=== PATIENT | female | born 1970 | race Caucasian/White ===

== ENCOUNTER 2020-12-12 05:43 | Observation (INO) ==
--- NOTE | 2020-12-06 10:06 | Anesthesiology Consultation ---
Date of Service December 06, 2020 Assessment & Plan (1) Encounter for pre-operative examination: Chart Review Chart Review: Acceptable Risk for Surgery (pending preop Covid testing results ) and Patient NOT seen in Pre Admission Testing - Check test AM DOS Per nursing assessment 12/04/2020, patient resides in [facility]. Travels only to [facility] for medical appts- wears PPE in public. No known Covid positive contacts or Covid related symptoms. Pt did test Covid positive on 10/04/20 (had headache, sinus congestion and fatigue- symptoms have since resolved). Covid testing 12/05/2020 = results pending. Patient seen by cardiology 09/25/2020 = patient seen for follow-up. Seen in August 2020 after complaints of epigastric pain that was relieved by Tums. Has not had any more epigastric discomfort since being placed on PPI. Echo results were unremarkable. Patient had gallbladder surgery on 09/06/2020 and tolerated procedure well without complications. Dyslipidemiacontinue Crestor. Lower extremity edemareviewed results of echo with patient. Continue with Lasix and potassium. Patient can follow-up in 1 year. History Surgery Operation Date: 12/12/20 07:30 Proposed Procedures p Bilateral Breast Reduction - Tricia Gold MD Height/Weight Height: 5 ft 7 in Weight: 103.419 kg Allergies Allergy/AdvReac Type Severity Reaction Status Date / Time No Known Allergies Allergy Verified 12/04/20 09:47 Medications Home Medications Medication Instructions Recorded Confirmed Last Taken atorvastatin 10 mg tablet 5 mg PO QAM 11/14/20 12/04/20 Unknown escitalopram oxalate 5 mg tablet 20 mg PO QAM 11/14/20 12/04/20 Unknown furosemide 20 mg tablet 20 mg PO Q OTHER DAY 11/14/20 12/04/20 Unknown oxycodone-acetaminophen 5 mg-325 1 tab PO Q4H PRN 3 Days #18 tab 11/30/20 12/04/20 Unknown mg tablet Thrive Supplement 2 tabs PO QAM 12/04/20 12/04/20 Unknown acetaminophen [Tylenol] 325 mg PO QID PRN 12/04/20 12/04/20 Unknown potassium chloride 10 meq PO QAM 12/04/20 12/04/20 Unknown Past Medical History Medical History Anxiety History of COVID-19 Oct 04, 2020 Hyperlipemia Kidney stones still present no issues Past Family History Family History Grandmother Diabetes Aunt Colon cancer Other Breast cancer Cancer Stroke Past Surgical History Surgical History History of cholecystectomy History of colonoscopy History of foot surgery left History of tubal ligation with reversal History of wisdom tooth extraction, class I edentulism Hx of lumpectomy left breast > benign Social History Smoking Status: Never smoker Do You Dip or Chew Tobacco: No Hx Alcohol Use: Yes Alcohol type: wine and hard liquor alcohol intake frequency: a few times a month Hx Substance Use: No substance use type: does not use Testing Laboratory Results Laboratory Tests 12/05/20 12/05/20 12/05/20 09:40 09:40 09:40 WBC 5.30 Hgb 14.2 Hct 42.9 Plt Count 266 PT 9.8 INR 1.0 APTT 26.8 Sodium 139 Potassium 3.7 Chloride 103 Carbon Dioxide 32 BUN 17 Creatinine 0.83 Glucose 84 Electrocardiogram Date: 12/05/20 Findings: + NSR @ (61 bpm) Cannot rule out anterior infarct, age undetermined. (By personal visual inspection- EKG is similar in appearance to 08/09/20 and 09/28/19 EKGs- had subsequent 09/04/20 ECHO without acute issues; pt also evaluated annually by cardio (last seen 09/2020- no acute issues noted) Chest X-Ray Date: 08/09/20 Findings: + NAD Chest x-ray 1 view Echocardiogram Date: 09/04/20 EF: 52% LV Function: normal RWMA: + none Valvular Disease: + no significant valvular disease Right ventricular cavity size and systolic function is normal. Other Testing CTA of chest 08/09/2020 = negative for pulmonary embolus. No intratracheal or intrabronchial lesions. The lungs are clear of acute infiltrates. No evidence of emphysema. No bronchiectasis. No evidence of parenchymal nodules. Minimal compressive atelectasis seen in the most dependent portions of the lungs.
[2020-12-12] MEDS ORDERED: ceFAZolin 2000MG 2,000 MG/15 ML SYR IV SCH (06:00)
[2020-12-12] MEDS ORDERED: LACTATED RINGER'S 1,000 ML IV SCH (06:00)
[2020-12-12] MEDS ORDERED: HYDROmorphone INJ 1 MG/ML SYRINGE IV PRN (07:02)
[2020-12-12] MEDS ORDERED: MEPERIDINE HCL 25 MG/ML CARP/VIAL IV PRN (07:02)
[2020-12-12] MEDS ORDERED: ePHEDrine sulfate 50 MG/ML AMP IV PRN (07:02)
[2020-12-12] MEDS ORDERED: ONDANSETRON INJ 2 MG/ML 2 ML VIAL IV PRN (07:02)
[2020-12-12] MEDS ORDERED: LABETALOL HCL IV 5 MG/ML 20ML IV PRN (07:02)
[2020-12-12] MEDS ORDERED: ATROPINE SULFATE 0.1 MG/ML 10ML SYR IV PRN (07:02)
[2020-12-12] MEDS ORDERED: PHENYLEPHRINE 100MCG/ML 5ML SYR IV PRN (07:02)
--- NOTE | 2020-12-12 07:02 | History & Physical Bridge Note ---
Date of Service December 12, 2020 History & Physical Bridge Note I have examined the patient, reviewed the History & Physical and in the interval since the performance of the History & Physical I have noted the following changes of clinical significance: +covid test. Patient tested positive in September with headache and fatigue; denies any symptoms today.
[2020-12-12] MEDS ORDERED: fentaNYL citrate 100 MCG/2 ML VIAL ONE ×2 (07:06→08:22)
[2020-12-12] MEDS ORDERED: MIDAZOLAM HCL 1 MG/ML 2ML VIAL ONE (07:06)
[2020-12-12] MEDS ORDERED: LIDOCAINE/EPINEPHRINE 1% 20 ML VIAL ONE (07:07)
[2020-12-12] MEDS ORDERED: SCOPOLAMINE 1 MG TDSY TD ONE (07:07)
[2020-12-12] MEDS ORDERED: BUPIVACAINE 0.25% 30 ML VIAL ONE (07:07)
[2020-12-12] MEDS ORDERED: ROCURONIUM BROMIDE 10 MG/ML 5 ML VIAL IV ONE (08:26)
[2020-12-12] MEDS ORDERED: LARYING-O-JET KIT (LTA) ONE (08:26)
[2020-12-12] MEDS ORDERED: ONDANSETRON INJ 2 MG/ML 2 ML VIAL ONE (08:26)
[2020-12-12] MEDS ORDERED: PROPOFOL IV EMULSION 10 MG/ML 20 ML VIAL IV ONE (08:26)
[2020-12-12] MEDS ORDERED: LIDOCAINE HCL 2% 2 ML VIAL/AMP(20MG/ML) INFIL ONE (08:26)
[2020-12-12] MEDS ORDERED: NEOSTIGMINE METHYLSULFATE 5 MG/5 ML SYR ONE (08:26)
[2020-12-12] MEDS ORDERED: GLYCOPYRROLATE 0.2 MG/ML VIAL ONE (08:26)
--- NOTE | 2020-12-12 11:30 | Post Operative Brief Note ---
PG Immediate Post Op with CF Date of Surgery December 12, 2020 Pre & Post Diagnosis Operation Date: 12/12/20 07:30 Pre-Op Diagnosis: Encounter for Cosmetic Surgery Post-Op Diagnosis: Encounter for Cosmetic Surgery I identified the patient and participated in the time-out.: Yes Procedure Operation Date: 12/12/20 07:30 Actual Procedures p Bilateral Breast Reduction(Bilateral) - Tricia Gold MD Surgeon Tricia Gold MD Inspector Tool Melany Roy PA-C Estimated Blood Loss 50 Findings Consistent with Post-Op Diagnosis Specimens Specimen Description: Frozen Section #1: Left Breast Tissue Mass Fresh Specimen: A.) Left Breast Tissue - out of body at 0905 592 grams Fresh Specimen: B.) Right Breast Tissue - out of body at 1045 606 grams Drains Jude-Scott Drain (15 equatorial guinean round x2)
[2020-12-12] MEDS ORDERED: ACETAMINOPHEN 1000 MG/100 ML IV IV ONE (11:34)
[2020-12-12] MEDS: fentaNYL citrate 100 MCG/2 ML VIAL IV PRN ×4 (11:52→12:10)
--- NOTE | 2020-12-12 12:29 | Anesthesiology Progress Note ---
Date of Service December 12, 2020 Anesthesia Post Procedure Vital Signs Vital Signs: Temp Pulse Pulse Resp BP BP Pulse Ox 12/12/20 12:20 36.7 C 58 L 9 L 112/66 96 12/12/20 12:10 61 12 137/75 97 12/12/20 12:00 94 H 13 139/73 100 12/12/20 11:50 67 11 L 142/75 H 100 12/12/20 11:43 36.1 C L 77 14 137/84 100 12/12/20 06:20 36.8 C 79 18 122/73 96 Pain Intensity Bilateral Breast: Pain Intensity: 2 Transfer of Care Handoff Completed per policy Notes Mental Status: alert / awake / arousable Patient Amnestic to Procedure: Yes Nausea / Vomiting: adequately controlled Pain: adequately controlled Airway Patency, RR, SpO2: stable & adequate BP & HR: stable & adequate Hydration State: stable & adequate Anesthetic Complications: no major complications apparent and Pt Satisfied with anesthetic care
[2020-12-12] MEDS ORDERED: MoRPHine SULFATE 2 MG/ML CARP IV PRN (12:55)
[2020-12-12] MEDS ORDERED: MoRPHine SULFATE 4 MG/ML 1 ML CARP\\VIAL IV PRN (12:55)
[2020-12-12] MEDS ORDERED: oxyCODONE/ACETAMINOPHEN 5mg/325mg TAB PO PRN (12:55)
[2020-12-12] MEDS ORDERED: ACETAMINOPHEN 325 MG TAB PO PRN (12:55)
[2020-12-12] MEDS: CHECK SCOPOLAMINE PATCH PLACEMENT SCH ×3 (12:59→23:58)
--- NOTE | 2020-12-12 13:16 | Operative Report ---
PG Post Operative Report Pre & Post Diagnosis Operation Date: 12/12/20 07:30 Pre-Op Diagnosis: Encounter for Cosmetic Surgery Post-Op Diagnosis: Encounter for Cosmetic Surgery I identified the patient and participated in the time-out.: Yes Procedure Operation Date: 12/12/20 07:30 Actual Procedures p Bilateral Breast Reduction(Bilateral) - Tricia Gold MD Surgeon Tricia Gold MD Personal Injury Law Specialist Melany Roy PA-C Estimated Blood Loss 50 Findings Consistent with Post-Op Diagnosis Specimens left breast 592 g, right breast 606 g, left breast masss for frozen section Drains JPx2 Anesthesia Type General Complications none Disposition Disposition: Recovery Room Indications 50-year-old female with symptomatic macromastia, desiring reduction mammoplasty. Due to excessive tissue requirement by insurance, patient elected to proceed on a cosmetic/self-pay basis. Description of Procedure The risks, benefits, and alternatives of the procedure were explained to the patient who agreed and signed consent. She was identified and marked in the preoperative holding area. She was brought to the operating room where she was positioned supine and placed under general anesthesia without incident. Surgical site was prepped and draped sterilely. A time-out procedure was performed. I began with the left side. Markings were reassessed and a 8 cm pedicle was marked. 1% lidocaine with epinephrine was used to anesthetize the planned incisions. A 42 mm cookie cutter was used to circumscribe the nipple-areolar complex. The previously marked 8 cm pedicle was incised using a 15 blade scalpel and de-epithelized. I began with the medial dissection of the pedicle using electrocautery. Cautery was used to incise through dermis and breast parenchyma down to the chest wall, taking care not to undermine the pedicle during dissection. A similar procedure was undertaken on the lateral aspect of the pedicle again taking care not to undermine. Lastly, the pedicle was dissected out superiorly using electrocautery and this was carried down to the chest wall as well. I then began with excision of the medial breast tissue followed by lateral aspect of the breast tissue and surrounding keyhole incision. A 15 blade scalpel was used to make the inframammary fold incision and electrocautery was used to deepen the incision through dermis and breast parenchyma. Dissection was then carried superiorly to the level of the superior incision. Superior incision was then incised using a 15 blade scalpel and again dissected using electrocautery. This was undertaken laterally and then around the keyhole portion of the incision. Care was taken to leave some fat on the lateral pectoralis fascia in order to protect the T4 intercostal nerve. Hemostasis was achieved with electrocautery. The specimen was passed off in its entirety for weighing. Additional resection was undertaken from the superior flap in order to facilitate closure of the breast and to provide the best shape. The left medial breast did have a scar from prior excisional biopsy, this was about 4 cm superior to my incision. Intervening skin was monitored throughout the procedure, did appear to be viable without evidence of venous congestion or tissue ischemia. Additionally, a small left breast nodularity was identified, sent for frozen section, and 2 clips were applied at the site of excision in case further evaluation would be deemed necessary. 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 The total resection weight of the left breast was 592 grams. The wound was irrigated with saline and hemostasis was achieved with electrocautery. 0.25% Marcaine plain was used to anesthetize the incisions as well as the pectoralis fascia. A 15 Angolan Anton drain was brought out through a separate stab incision. The nipple-areolar complex was brought into the keyhole using 2-0 Vicryl deep dermal suture. The wound was closed first in a lateral to mid breast direction and then medial to mid breast direction using 2-0 Vicryl deep dermal sutures. Vertical limb was also appr oximated using 2-0 Vicryl deep dermals and the nipple-areolar complex was inset using 2-0 Vicryl deep dermal sutures. Next, the superficial dermal layer was closed using 2-0 PDO running Quill suture along the inframammary fold and 3-0 PDS interrupted dermal sutures along the vertical limb and nipple- areolar complex. Lastly 3-0 Monocryl running subcuticular suture was placed. A similar procedure was undertaken on the right side with maximal excision weight of 606 grams. Breasts were symmetric and nipple-areolar complexes were viable bilaterally following wound closure. Dermabond Prineo was applied along the inframammary fold and vertical limb and Dermabond was placed around the nipple-areolar complex. Dry dressings and a surgical bra were placed. The patient was awakened and transferred to recovery room in satisfactory condition. Melany Roy PA-C was present and scrubbed throughout the procedure and was instrumental in providing retraction during dissection of the pedicle and assisting in wound closure. I attest to the content of the Intraoperative Record and any orders documented therein. Any exceptions are noted below.
[2020-12-12] MEDS: D5W AND 1/2NSS + 20MEQ KCL 20 MEQ/1,000 ML BAG IV SCH (13:33)
[2020-12-12] MEDS: ceFAZolin 2000MG 2,000 MG/15 ML SYR IV SCH ×2 (14:45→22:45)
[2020-12-12] MEDS: oxyCODONE/ACETAMINOPHEN 5mg/325mg TAB PO PRN ×2 (14:49→22:07)
--- NOTE | 2020-12-12 15:02 | Surgery Progress Note ---
Date of Service December 12, 2020 Assessment & Plan (1) Macromastia: (2) Encounter for cosmetic surgery: Admission and Anticipated Discharge Date Admission Date: December 12, 2020 Patient is doing well. We reviewed her instructions for tonight. Will see in mor carla to d/c drains and send home. All questions answered. Subjective Patient is resting comfortably, vitals stable. Her pain is well controlled. Physical Exam Physical Exam: bilateral breast flaps and nipples are viable, drains with 5cc of serous and bloody output. no concern for hematoma Results & Data ([facility]) Vital Signs (Past 12 Hours) Vital Signs Temp Pulse Pulse Resp BP BP Pulse Ox 12/12/20 14:35 87 16 111/73 97 12/12/20 13:32 36.8 C 62 16 114/74 93 12/12/20 13:05 57 L 16 109/70 92 12/12/20 12:35 36.8 C 55 L 16 119/69 96 12/12/20 12:20 36.7 C 58 L 9 L 112/66 96 12/12/20 12:10 61 12 137/75 97 12/12/20 12:00 94 H 13 139/73 100 12/12/20 11:50 67 11 L 142/75 H 100 12/12/20 11:43 36.1 C L 77 14 137/84 100 12/12/20 06:20 36.8 C 79 18 122/73 96 PG Care Time/CCT Total # of Minutes Spent Total Time Spent with Patient: Total time spent is greater than 50% in coordination of care (as documented) at patient's floor/unit and/or counseling patient: Coding Level of Care Code None Diagnoses Macromastia N62 Encounter for cosmetic surgery Z41.1
[2020-12-13] MEDS: D5W AND 1/2NSS + 20MEQ KCL 20 MEQ/1,000 ML BAG IV SCH (02:36)
[2020-12-13] MEDS: CHECK SCOPOLAMINE PATCH PLACEMENT SCH (08:02)
--- NOTE | 2020-12-13 08:42 | Surgery Progress Note ---
Date of Service December 13, 2020 Assessment & Plan Admission and Anticipated Discharge Date Admission Date: December 12, 2020 Drains removed. Plan to d/c home today and follow-up with telehealth tomorrow. Extra time spent discussing post-op restrictions. Subjective Patient doing well. Reports no concerns overnight. Notices improvement in heaviness of her chest. VSS Physical Exam 2 Physical Exam: bilateral breast flaps and nipples are viable, drains with 10cc of serous and bloody output- removed and optifoam dressing applied. no concern f or hematoma Results & Data ([facility]) Vital Signs (Past 12 Hours) Vital Signs Temp Pulse Pulse Resp BP BP Pulse Ox 12/13/20 08:06 36.8 C 55 L 14 126/73 97 12/13/20 03:36 36.6 C 52 L 16 93/60 L 94 12/12/20 22:34 36.8 C 57 L 16 103/65 95 PG Care Time/CCT Total # of Minutes Spent Total Time Spent with Patient: Total time spent is greater than 50% in coordination of care (as documented) at patient's floor/unit and/or counseling patient: Coding Level of Care Code None
[2020-12-13] MEDS ORDERED: ESCITALOPRAM OXALATE 20 MG TAB PO SCH (09:00)
[2020-12-13] MEDS ORDERED: FUROSEMIDE 20 MG TAB PO SCH (09:00)
[2020-12-13] MEDS ORDERED: ATORVASTATIN 10 MG TAB PO SCH (09:00)
--- NOTE | 2020-12-13 16:20 | Discharge Summary ---
Date of Service December 13, 2020 Admission HPI Per Admitting Provider Chioma presents with symptomatic macromastia. Please seen pre-op H&P. Admission Exam Per Admitting Provider + bilateral macromastia See pre-op H&P Principal Diagnosis encounter for cosmetic surgery macromastia Discharge Exam + bilateral breast flaps and nipples are viable. incisions CDI. drains with appropriate serosang output. no concern for infection Discharge Data Allergies Allergy/AdvReac Type Severity Reaction Status Date / Time No Known Allergies Allergy Verified 12/12/20 06:12 Procedures Performed Operation Date: 12/12/20 07:30 Actual Procedures p Bilateral Breast Reduction(Bilateral) - Tricia Gold MD Hospital Course (1) Encounter for cosmetic surgery: (2) Macromastia: Patient presented to [facility] with history of symptomatic macromastia. She was taken to the OR and underwent bilateral breast reduction. There were no intraoperative complications. She was taken to recovery and transferred to med/surg for observation. On POD#1, she was feeling well. She was tolerating a regular diet and ambulating. On exam, her vitals were stable. Her incisions were CDI and nipples viable. Her drains were removed. She was discharged home with instructions to follow-up in the office in one day. Total Time Total Time Spent Total Time Spent (In Minutes): 25 Total Time Includes: Examination of the Patient, Discharge Planning, Medication Reconciliation and Communication With Other Providers Discharge Plan Discharge Items Patient Disposition: Home - Self-Care Reason For Visit: Encounter for Cosmetic Surgery Discharge Diagnosis: s/p bilateral breast reduction Activity: As commented below Non-emergency contact: Surgeon Call non-emergency contact if: you have any medication questions, your pain is not controlled, your pain is worsening, you have a fever, your wound has increased redness, your wound has increased drainage and your wound pain has increased Follow-up/Referrals: Melany Roy PA-C [Physician Wine Bottle Inspector] - 12/14/20 11:00 am (TELEHEALTH VISIT WITH RANDOLPH ROY) Cici Richmond PA-C [Primary Care Provider] - Diet: Regular Addtl Attending Provider Instructions: ACTIVITY RECOMMENDATIONS: __Normal activities x__No bending, lifting or straining __No driving _x_Driving allowed when you are off pain medications and you feel safe to drive without pain _x_Walking permitted __You should have help at home for ___ days DRESSINGS: __No dressings required _x_Keep dressings dry/in place until first office visit- you will remove gauze dressing tomorrow during telehealth visit. No dressing required after that, only compression bra. You may find wearing a soft shirt under the bra is most comfortable. __Remove dressings ___ and leave dressings off __Apply ice ___ days __Remove dressings and reapply garment __Apply antibiotic ointment (Bacitracin, Neosporin, etc) to wounds 3-4 times/day for 10 days BATHING: _x_Keep dressings dry _x_Sponge bathing permitted __Showering permitted _x_No swimming, hot tubs or soaking in a tub MEDICATIONS: Resume previous medications unless instructed otherwise by your surgeon. _x_Do not use aspirin, Motrin, Advil or Ibuprofen as these may promote bleeding. Please use Tylenol. _x_Prescription(s) provided: post-op pain medication was prescribed at your last office visit OTHER INSTRUCTIONS: __Record drain output 2-3 times per day SPECIAL CARE INSTRUCTIONS: * It is normal to have a mild fever after surgery. If your temperature is higher than 101.5 degrees F, please call the office at [phone]. * Constipation is a typical side effect of pain medication. An [id number] stool softener will help relieve this. * Leaking around surgical drains may occur and should not cause concern. Sometimes these drains become clogged. If this happens, remove the bulb and milk the clot out of the tube, then replace the bulb. * Drainage from wounds after liposuction is normal and should be expected. Garments will become soiled. You should protect furniture and bedding. This drainage should mostly subside within 2-3 days. Leave garments in place unless instructed to remove them. * If you have unusual drainage from a wound or are concerned you have an infection or have any questions or concerns, please call the office at [phone]. FOLLOW UP VISIT: If not already scheduled, please call the office, , when you return home after surgery to schedule an appointment to be seen in _1__ days (telehealth) 2 weeks for suture removal. Pending Studies at Discharge: Yes Studies:: pathology Stand-Alone Forms: My [facility] [employer], Smoking Cessation Medications and DC Order Prescriptions: Continued escitalopram oxalate [Lexapro] 5 mg tablet 20 mg PO QAM RF: 0 furosemide [Lasix] 20 mg tablet 20 mg PO Q OTHER DAY RF: 0 atorvastatin [Lipitor] 10 mg tablet 5 mg PO QAM RF: 0 oxycodone-acetaminophen [Percocet] 5-325 mg tablet 1 tab PO Q4H PRN (Reason: pain) 3 Days Qty: 18 RF: 0 potassium chloride 10 mEq Capsule, Extended Release 10 meq PO QAM RF: 0 acetaminophen [Tylenol] 325 mg Tablet 325 mg PO QID PRN (Reason: Pain) RF: 0 Discontinued Thrive Supplement 2 tabs PO QAM RF: 0 Discharge Orders: Discharge Order (Routine); Ordered 12/13/20 Ordered By: Melany Oseguera/Other Patient Handouts: Breast Anatomy Admission Data Admit Date/Time: 12/12/20 11:56 Attending Provider: Tricia Gold Admit Provider: Tricia Gold Primary Care Provider: Cici Richmond Other Interventions: Discharge Summary Assessment (RN) Last Done: 12/13/20 09:26 Coding Level of Care Code 07971 OBS Care - Discharge Diagnoses Encounter for cosmetic surgery Z41.1 Macromastia N62
== END 2020-12-13 10:16 | disposition home or self-care (01) ==
LOC: 3W 05:43 → ASU 05:43 → MERGE 07:30